=== PATIENT | female | born 1985 | race Caucasian/White ===

== ENCOUNTER 2017-04-27 10:59 | Emergency (ER) | payer OTHER ==
[~2017-04-27] VITALS: Ht 165.1 cm; Wt 82.6 kg
[2017-04-27] MEDS ORDERED: ZANTAC300 MG (11:43)
[2017-04-27] MEDS ORDERED: PROTONIX40 MG (11:43)
[2017-04-27] MEDS ORDERED: PLAQUENIL (11:46)
== END 2017-04-27 13:22 | disposition home or self-care (01) ==
LOC: ER 10:59
DX: B34.9 Viral infection, unspecified (principal)

== ENCOUNTER 2018-12-11 13:48 | Emergency (ER) | payer OTHER ==
[~2018-12-11] VITALS: Ht 165.1 cm; Wt 84.4 kg
[~2018-12-11 13:48] MED LIST: PLAQUENIL; PROTONIX40 MG; ZANTAC300 MG
[2018-12-11] MEDS ORDERED: DEXILANT60 MG (14:06)
[2018-12-11] MEDS ORDERED: FORTAMET500 MG (14:06)
== END 2018-12-11 17:46 | disposition home or self-care (01) ==
LOC: ER 13:48
DX: K52.9 Noninfective gastroenteritis and colitis, unspecified (principal)

== ENCOUNTER 2019-02-07 18:59 | Emergency (ER) | payer OTHER ==
[~2019-02-07] VITALS: Ht 165.1 cm; Wt 83.5 kg
[~2019-02-07 18:59] MED LIST changes: +DEXILANT60 MG; +FORTAMET500 MG
== END 2019-02-07 22:44 | disposition home or self-care (01) ==
LOC: ER 18:59
DX: D50.0 Iron deficiency anemia secondary to blood loss (chronic) (principal); N93.8 Other specified abnormal uterine and vaginal bleeding; R51 Headache; M54.2 Cervicalgia

== ENCOUNTER 2020-04-07 08:22 | Outpatient (CLI) | payer OTHER | END 2020-04-07 08:27 | disposition home or self-care (01) | LOC: RX STUDY 08:22 | DX: N92.1 Excessive and frequent menstruation with irregular cycle (principal) ==

== ENCOUNTER 2022-07-26 07:24 | Emergency (ER) | payer OTHER ==
[~2022-07-26] VITALS: Ht 165.1 cm; Wt 91.6 kg
[2022-07-26] MEDS ORDERED: SYNTHROID75 MCG (07:49)
[2022-07-26] MEDS ORDERED: INTEGRA PLUS C1 EACH (07:50)
[2022-07-26] MEDS ORDERED: SINGULAIR 10MG10 MG PO (07:51)
[2022-07-26] MEDS ORDERED: ALLEGRA ALLERGY60 MG (07:51)
== END 2022-07-26 10:06 | disposition home or self-care (01) ==
LOC: ER 07:24
DX: M72.2 Plantar fascial fibromatosis (principal); E03.8 Other specified hypothyroidism

== ENCOUNTER 2022-10-09 12:32 | Emergency (ER) | payer OTHER ==
[~2022-10-09] VITALS: Ht 152.4 cm; Wt 87.5 kg
[~2022-10-09 12:32] MED LIST changes: +ALLEGRA ALLERGY60 MG; +INTEGRA PLUS C1 EACH; +SINGULAIR 10MG10 MG PO; +SYNTHROID75 MCG
== END 2022-10-09 15:31 | disposition home or self-care (01) ==
LOC: ER 12:32
DX: R42 Dizziness and giddiness (principal); E11.9 Type 2 diabetes mellitus without complications; Z79.84 Long term (current) use of oral hypoglycemic drugs